=== PATIENT | female | born 1940 | race Caucasian/White ===

== ENCOUNTER 2018-05-26 10:36 | Observation (INO) | payer OTHER ==
[2018-05-26 11:28] LABS: Absolute Lymphocytes (CBC) 1.6 K/uL (0.7-4.9); Absolute Monocytes 0.4 K/uL (0.1-1.3); Absolute Neutrophil 6.7 K/uL (1.8-8.0); Basophils % 0.5 % (0-1.3); Eosinophils % 0.6 % (0-4.4); Hematocrit 41.2 % (36.0-45.0); Lymphocytes % 18.2 % (15.3-44.8); MCH 31.9 pg (27.0-35.0); MCV 90.9 fL (80-100); MPV 9.1 fL (7.6-11.3); Monocytes % 4.6 % (3.3-12.3); RBC Red Blood Cell Count 4.54 M/uL (3.86-4.86)
[2018-05-26 11:33] LABS: Protime INR 1.03
--- NOTE | 2018-05-26 11:41 | EDPHYS ---
Physician Documentation [facility] Name: Mariela Potter Age: 77 yrs Sex: Female : 1940 Arrival Date: 05/26/2018 Time: 10:37 Bed 2 Private MD: ED Physician Yinka Romero HPI: 05/26 11:35 This 77 yrs old Female presents to ER via Ambulatory with complaints of Chest chester Pain > 30 y/o, Palpitations. 11:35 The patient or guardian reports chest pain that is located primarily in the substernal chester area, anterior chest wall, bilaterally. Onset: 2 day(s) ago. The pain does not radiate. Associated signs and symptoms: The patient has no apparent associated signs or symptoms. The chest pain is described as a heaviness, causing indigestion, a pressure, squeezing. Modifying factors: The symptoms are alleviated by remaining still, rest, the symptoms are aggravated by nothing. possibly supine. Severity of pain: At its worst the pain was mild in the emergency department the pain is unchanged. Historical: - Allergies: 11:00 No Known Allergies; aj1 - Home Meds: 11:00 losartan oral oral [Active]; pravastatin oral oral [Active]; aj1 - PMHx: 11:00 Hypertension; "heart blockage"; aj1 - Immunization history:: Adult Immunizations up to date. - Ebola Screening: : Patient denies travel to an Ebola-affected area in the 21 days before illness onset. - Family history:: not pertinent. - Social history:: Smoking status: Patient/guardian denies using tobacco. ROS: 11:35 Constitutional: Negative for fever, chills, and weight loss, Eyes: Negative for injury, chester pain, redness, and discharge. 11:38 Constitutional: Negative for fever, chills, and weight loss, Eyes: Negative for injury, chester pain, redness, and discharge, ENT: Negative for injury, pain, and discharge, Neck: Negative for injury, pain, and swelling, Respiratory: Negative for shortness of breath, cough, wheezing, and pleuritic chest pain, Abdomen/GI: Negative for abdominal pain, nausea, vomiting, diarrhea, and constipation, Back: Negative for injury and pain, : Negative for injury, bleeding, discharge, and swelling, MS/Extremity: Negative for injury and deformity, Skin: Negative for injury, rash, and discoloration, Neuro: Negative for headache, weakness, numbness, tingling, and seizure, Psych: Negative for depression, anxiety, suicide ideation, homicidal ideation, and hallucinations, Allergy/Immunology: Negative for hives, rash, and allergies, Endocrine: Negative for neck swelling, polydipsia, polyuria, polyphagia, and marked weight changes, Hematologic/Lymphatic: Negative for swollen nodes, abnormal bleeding, and unusual bruising. 11:38 Cardiovascular: Positive for chest pain, of the chest. Exam: 11:35 Constitutional: This is a well developed, well nourished patient who is awake, alert, chester and in no acute distress. Head/Face: Normocephalic, atraumatic. Eyes: Pupils equal round and reactive to light, extra-ocular motions intact. Lids and lashes normal. Conjunctiva and sclera are non-icteric and not injected. Cornea within normal limits. Periorbital areas with no swelling, redness, or edema. ENT: Nares patent. No nasal discharge, no septal abnormalities noted. Tympanic membranes are normal and external auditory canals are clear. Oropharynx with no redness, swelling, or masses, exudates, or evidence of obstruction, uvula midline. Mucous membranes moist. Neck: Trachea midline, no thyromegaly or masses palpated, and no cervical lymphadenopathy. Supple, full range of motion without nuchal rigidity, or vertebral point tenderness. No Meningismus. Chest/axilla: Normal chest wall appearance and motion. Nontender with no deformity. No lesions are appreciated. Respiratory: Lungs have equal breath sounds bilaterally, clear to auscultation and percussion. No rales, rhonchi or wheezes noted. No increased work of breathing, no retractions or nasal flaring. Abdomen/GI: Soft, non-tender, with normal bowel sounds. No distension or tympany. No guarding or rebound. No evidence of tenderness throughout. Back: No spinal tenderness. No costovertebral tenderness. Full range of motion. Female : Normal external genitalia. Skin: Warm, dry with normal turgor. Normal color with no rashes, no lesions, and no evidence of cellulitis. MS/ Extremity: Pulses equal, no cyanosis. Neurovascular intact. Full, normal range of motion. Neuro: Awake and alert, GCS 15, oriented to person, place, time, and situation. Cranial nerves II-XII grossly intact. Motor strength 5/5 in all extremities. Sensory grossly intact. Cerebellar exam normal. Normal gait. Psych: Awake, alert, with orientation to person, place and time. Behavior, mood, and affect are within normal limits. 11:35 Cardiovascular: Rate: normal, Rhythm: regular, Heart sounds: normal, Edema: is not appreciated, JVD: is not appreciated. Vital Signs: 11:00 BP 163 / 58; Pulse 73; Resp 18; Temp 98.1; Pulse Ox 97% on R/A; Weight 63.5 kg (R); aj1 Height 5 ft. 3 in. (160.02 cm) (R); Pain 0/10; 12:00 BP 156 / 67; Pulse 62; Resp 18; Pulse Ox 98% ; aj1 13:00 BP 160 / 56; Pulse 63; Resp 18; Pulse Ox 96% ; aj1 14:05 BP 145 / 88; Pulse 45; Resp 18; Pulse Ox 97% on R/A; aj1 15:25 BP 156 / 66; Pulse 48; Resp 18; Pulse Ox 97% on R/A; aj1 16:33 BP 145 / 62; Pulse 53; Resp 18; Pulse Ox 97% on R/A; aj1 11:00 Body Mass Index 24.80 (63.50 kg, 160.02 cm) [facility] MDM: 10:41 Patient medically screened. [facility] 11:37 Data reviewed: vital signs, nurses notes. Data reviewed: lab test result(s), EKG, chester radiologic studies, plain films. 05/26 10:42 Order name: Basic Metabolic Panel [facility] 05/26 10:42 Order name: CBC with Diff [facility] 05/26 10:42 Order name: LFT's [facility] 05/26 10:42 Order name: Magnesium [facility] 05/26 10:42 Order name: NT PRO-BNP [facility] 05/26 10:42 Order name: PT-INR [facility] 05/26 10:42 Order name: Troponin (emerg Dept Use Only) [facility] 05/26 10:42 Order name: Lipase [facility] 05/26 11:29 Order name: CBC with Automated Diff; Complete Time: 11:35 EDMS 05/26 11:33 Order name: Protime (+INR); Complete Time: 11:35 EDSC 05/26 12:06 Order name: Basic Metabolic Panel; Complete Time: 12:36 EDSC 12 12:06 Order name: Liver (Hepatic) Function; Complete Time: 12:36 [facility] 05/26 12:06 Order name: Troponin (Emerg Dept Use Only); Complete Time: 12:36 EDSC 05/26 12:06 Order name: NT PRO-BNP; Complete Time: 12:36 [facility] 05/26 10:42 Order name: XRAY Chest (1 view) [facility] 05/26 10:42 Order name: EKG; Complete Time: 10:43 [facility] 05/26 10:42 Order name: Cardiac monitoring; Complete Time: 11:10 [facility] 05/26 10:42 Order name: EKG - Nurse/Tech; Complete Time: 11:10 [facility] 05/26 10:42 Order name: IV Saline Lock; Complete Time: 11:25 [facility] 05/26 10:42 Order name: Labs collected and sent; Complete Time: 11:25 [facility] 05/26 10:42 Order name: O2 Per Protocol; Complete Time: 11:10 [facility] 05/26 10:42 Order name: O2 Sat Monitoring; Complete Time: 11:10 [facility] 05/26 10:42 Order name: Urine Dipstick-Ancillary (obtain specimen); Complete Time: 13:52 [facility] 05/26 12:06 Order name: Magnesium; Complete Time: 12:36 [facility] 05/26 12:06 Order name: Lipase; Complete Time: 12:36 [facility] 05/26 12:22 Order name: RAD; Complete Time: 12:36 [facility] 05/26 16:22 Order name: Urine Dipstick--Ancillary (enter results) bd Administered Medications: 13:03 Drug: Lovenox 1 mg/kg Route: Sub-Q; Site: left lower abdomen; aj1 14:05 Follow up: Response: No adverse reaction aj1 13:03 Drug: Lopressor 25 mg {Note: HR 66 BP 175/82.} Route: PO; aj1 14:05 Follow up: Response: Adverse reaction, Physician notified; Cardiac rhythm changed aj1 13:21 Drug: NS 0.9% 1000 ml Route: IV; Rate: 125 ml/hr; Site: left antecubital; aj1 22:29 Follow up: IV Status: Infusion continued upon admission; IV Intake: 375ml aj1 Disposition: 05/26/18 11:40 Hospitalization ordered by Marcellus Izquierdo for Observation. Preliminary diagnosis are Chest pain, unspecified, Essential (primary) hypertension. - Bed requested for Telemetry/MedSurg (observation). - Status is Observation. aj1 - Condition is Fair. - Problem is new. - Symptoms have improved. UTI on Admission? No Signatures: Dispatcher [employer] EDSwathi Ortiz RN RN aj1 Yinka Romero MD MD cha Fitzgerald, Diane, RN RN df Corrections: (The following items were deleted from the chart) 11:38 11:37 Data reviewed: vital signs, nurses notes, lab test result(s), EKG, radiologic chester studies, CT scan, plain films, [facility] 14:30 11:40 Hospitalization Ordered by Marcellus Izquierdo DO for Observation. Preliminary df diagnosis is Chest pain, unspecified; Essential (primary) hypertension. Bed requested for Telemetry/MedSurg (observation). Status is Observation. Condition is Fair. Problem is new. Symptoms have improved. UTI on Admission? No. chester 16:36 14:30 05/26/2018 11:40 Hospitalization Ordered by Marcellus Izquierdo DO for Observation. aj1 Preliminary diagnosis is Chest pain, unspecified; Essential (primary) hypertension. Bed requested for Telemetry/MedSurg (observation). Status is Observation. Condition is Fair. Problem is new. Symptoms have improved. UTI on Admission? No. df
--- NOTE | 2018-05-26 11:41 | ER ---
Nurse's Notes [facility] Name: Mariela Potter Age: 77 yrs Sex: Female : 1940 Arrival Date: 05/26/2018 Time: 10:37 Bed 2 Private MD: Diagnosis: Chest pain, unspecified;Essential (primary) hypertension Presentation: 05/26 10:37 Presenting complaint: Patient states: Mid sternal CP that started yesterday, sg intermittent, described as a pinch and then no pain, reports having had 80 percent blockage and a Cath done many years ago but the procedure was not finished, unsure why, reports at night having low BP and feeling her heart pounding and fluttering. Transition of care: patient was not received from another setting of care. Onset of symptoms was May 26, 2018. Risk Assessment: Do you want to hurt yourself or someone else? Patient reports no desire to harm self or others. Initial Sepsis Screen: Does the patient meet any 2 criteria? No. Patient's initial sepsis screen is negative. Does the patient have a suspected source of infection? No. Patient's initial sepsis screen is negative. Care prior to arrival: None. 10:37 Method Of Arrival: Ambulatory sg 10:37 Acuity: GWEN 3 sg Triage Assessment: 11:00 General: Appears in no apparent distress. comfortable, Behavior is calm, cooperative, aj1 appropriate for age. Pain: Denies pain. Cardiovascular: Denies chest pain. Historical: - Allergies: 11:00 No Known Allergies; aj1 - Home Meds: 11:00 losartan oral oral [Active]; pravastatin oral oral [Active]; aj1 - PMHx: 11:00 Hypertension; "heart blockage"; aj1 - Immunization history:: Adult Immunizations up to date. - Ebola Screening: : Patient denies travel to an Ebola-affected area in the 21 days before illness onset. - Family history:: not pertinent. - Social history:: Smoking status: Patient/guardian denies using tobacco. Screenin:01 Abuse screen: Denies threats or abuse. Denies injuries from another. Nutritional aj1 screening: No deficits noted. Tuberculosis screening: No symptoms or risk factors identified. 16:35 Fall Risk None identified. aj1 Assessment: 11:01 General: Appears in no apparent distress. comfortable, Behavior is calm, cooperative, aj1 appropriate for age. Pain: Denies pain. Neuro: Level of Consciousness is awake, alert, obeys commands, Oriented to person, place, time, situation. Cardiovascular: Reports palpitations, She had some chest pressure last night after taking Cardizem for the first time Denies chest pain, shortness of breath, Heart tones S1 S2 present Patient's skin is warm and dry. Respiratory: Airway is patent Respiratory effort is even, unlabored, Respiratory pattern is regular, symmetrical. GI: No signs and/or symptoms were reported involving the gastrointestinal system. : No signs and/or symptoms were reported regarding the genitourinary system. EENT: No signs and/or symptoms were reported regarding the EENT system. Derm: No signs and/or symptoms reported regarding the dermatologic system. Skin is pink, warm \\T\\ dry. normal. Musculoskeletal: No signs and/or symptoms reported regarding the musculoskeletal system. Circulation, motion, and sensation intact. 12:00 Reassessment: Patient appears in no apparent distress at this time. No changes from aj1 previously documented assessment. Patient and/or family updated on plan of care and expected duration. Pain level reassessed. Patient is alert, oriented x 3, equal unlabored respirations, skin warm/dry/pink. 13:00 Reassessment: Patient and/or family updated on plan of care and expected duration. Pain aj1 level reassessed. General: Appears in no apparent distress. comfortable. Pain: Denies pain. Neuro: Level of Consciousness is awake, alert, obeys commands, Oriented to person, place, time, situation. Cardiovascular: Denies chest pain, shortness of breath, Heart tones S1 S2 present Patient's skin is warm and dry. Respiratory: Airway is patent Respiratory effort is even, unlabored, Respiratory pattern is regular, symmetrical. GI: No signs and/or symptoms were reported involving the gastrointestinal system. : No signs and/or symptoms were reported regarding the genitourinary system. EENT: No signs and/or symptoms were reported regarding the EENT system. Derm: No signs and/or symptoms reported regarding the dermatologic system. Skin is pink, warm \\T\\ dry. normal. Musculoskeletal: No signs and/or symptoms reported regarding the musculoskeletal system. Circulation, motion, and sensation intact. 14:05 Reassessment: Patient HR dropped, currently in the 30's to 40's. Patient is sitting up aj1 in bed, states that she feels fine. Repeat EKG obtained. Notified Dr. Romero, no orders received at this time. 14:05 Reassessment: Patient and/or family updated on plan of care and expected duration. Pain aj1 level reassessed. General: Appears in no apparent distress. comfortable, Behavior is calm, cooperative, appropriate for age. Pain: Denies pain. Neuro: Level of Consciousness is awake, alert, obeys commands, Oriented to person, place, time, situation, Denies dizziness. Cardiovascular: Patient's skin is warm and dry. Rhythm is sinus bradycardia. Respiratory: Airway is patent Respiratory effort is even, unlabored, Respiratory pattern is. 15:24 Reassessment: Patient appears in no apparent distress at this time. No changes from aj1 previously documented assessment. Patient and/or family updated on plan of care and expected duration. Pain level reassessed. Patient is alert, oriented x 3, equal unlabored respirations, skin warm/dry/pink. 16:33 Reassessment: Patient appears in no apparent distress at this time. No changes from aj1 previously documented assessment. Patient and/or family updated on plan of care and expected duration. Pain level reassessed. Patient is alert, oriented x 3, equal unlabored respirations, skin warm/dry/pink. Vital Signs: 11:00 BP 163 / 58; Pulse 73; Resp 18; Temp 98.1; Pulse Ox 97% on R/A; Weight 63.5 kg (R); aj1 Height 5 ft. 3 in. (160.02 cm) (R); Pain 0/10; 12:00 BP 156 / 67; Pulse 62; Resp 18; Pulse Ox 98% ; aj1 13:00 BP 160 / 56; Pulse 63; Resp 18; Pulse Ox 96% ; aj1 14:05 BP 145 / 88; Pulse 45; Resp 18; Pulse Ox 97% on R/A; aj1 15:25 BP 156 / 66; Pulse 48; Resp 18; Pulse Ox 97% on R/A; aj1 16:33 BP 145 / 62; Pulse 53; Resp 18; Pulse Ox 97% on R/A; aj1 11:00 Body Mass Index 24.80 (63.50 kg, 160.02 cm) aj ED Course: 10:37 Patient arrived in ED. sg 10:38 Triage completed. sg 10:38 Arm band placed on. sg 10:40 Swathi Cummings, RN is Primary Nurse. aj1 10:41 Yinka Romero MD is Attending Physician. [facility] 10:50 EKG done, by ED staff, reviewed by Yinka Romero MD. jb1 11:01 Patient has correct armband on for positive identification. cardiac cath tech on. Pulse aj1 ox on. NIBP on. 11:01 No provider procedures requiring assistance completed. Patient maintains SpO2 aj1 saturation greater than 95% on room air. 11:24 Initial lab(s) drawn, by co, sent to lab. Inserted saline lock: 22 gauge in left jb1 antecubital area, using aseptic technique. Blood collected. 11:39 Marcellus Izquierdo DO is Hospitalizing Provider. chester 16:34 Patient admitted, IV remains in place. aj1 16:35 Report given to DALLAS Urban on 4th floor. aj1 Administered Medications: 13:03 Drug: Lovenox 1 mg/kg Route: Sub-Q; Site: left lower abdomen; aj1 14:05 Follow up: Response: No adverse reaction aj1 13:03 Drug: Lopressor 25 mg {Note: HR 66 BP 175/82.} Route: PO; aj1 14:05 Follow up: Response: Adverse reaction, Physician notified; Cardiac rhythm changed aj1 13:21 Drug: NS 0.9% 1000 ml Route: IV; Rate: 125 ml/hr; Site: left antecubital; aj1 22:29 Follow up: IV Status: Infusion continued upon admission; IV Intake: 375ml aj1 Intake: 22:29 IV: 375ml; Total: 375ml. aj1 Outcome: 11:40 Decision to Hospitalize by Provider. chester 16:35 Admitted to Tele accompanied by tech, via wheelchair. aj1 16:35 Condition: good 16:35 Discharge instructions given to patient, Instructed on the need for admit, Demonstrated understanding of instructions, follow-up care. 16:36 Patient left the ED. aj1 Signatures: Glynn Beasley jb1 Swathi Cummings, RN RN aj1 Cyril Nguyen RN RN sg Anderson, Corey, MD MD chester
[2018-05-26 12:06] LABS: ALT/SGPT 20 U/L (12-78); AST/SGOT 12 U/L (15-37); Albumin 4.1 g/dL (3.4-5.0); Alkaline Phosphatase 71 U/L (45-117); BUN Blood Urea Nitrogen 14 mg/dL (7-18); Bicarbonate 25 mmol/L (21-32); Bilirubin Direct 0.2 mg/dL (0-0.2); Bilirubin Total 0.7 mg/dL (0.2-1.0); Glucose Level 112 mg/dL (74-106); Lipase 79 U/L (73-393); Magnesium 2.3 mg/dL (1.8-2.4); NT PRO-BNP 260 pg/mL (<450); Potassium 3.5 mmol/L (3.5-5.1); Protein, Total 7.5 g/dL (6.4-8.2); Sodium Level 139 mmol/L (136-145); Troponin (Emerg Dept Use Only) < 0.02 ng/mL (0.0-0.045)
[2018-05-26] MEDS ORDERED: ACETAMINOPHEN 500 MG TAB PO PRN (12:09)
[2018-05-26] MEDS ORDERED: NITROGLYCERIN 0.4 MG/TAB SL PRN (12:09)
[2018-05-26] MEDS ORDERED: ONDANSETRON 4 MG/2 ML VIAL IV PRN (12:09)
[2018-05-26] MEDS ORDERED: MORPHINE 2 MG/ML SYR IV PRN (12:09)
--- NOTE | 2018-05-26 12:20 | P.HP ---
Certification for Inpatient Patient admitted to: Observation With expected LOS: <2 Midnights Patient will require the following post-hospital care: None Practitioner: I am a practitioner with admitting privileges, knowledge of patient current condition, hospital course, and medical plan of care. Services: Services provided to patient in accordance with Admission requirements found in Title 42 Section 412.3 of the Code of Federal Regulations Patient History Date of Service: 05/26/18 Primary Care Provider: Dr. Sharma; Cardiology-Dr. Vergara Reason for admission: Chest pain, palpitation History of Present Illness: 77-year-old female presented to the emergency room with chest pain and palpitation. Patient reported chest pain to the midsternal region. She reports it as a tightness. This started about a couple weeks ago. She has seen Cardiology for this. She reports being seen at [facility] [place] for this. She had a stress test done at that time which was unremarkable. She also reports an echocardiogram. She has since followed up with a different school year nanny-Dr. Vergara to evaluate her condition. Medications had been adjusted over the last several weeks. She was recently placed on her previous medication of Diovan 80 mg daily. Yesterday she saw her school year nanny. Cardizem was implemented for better blood pressure control. She reports not doing well with the Cardizem. She had some palpitations last night. She denies any significant fever, chills , nausea or vomiting. She denies any shortness of breath. Patient came to the emergency room to further assess. In the ER patient evaluated. Blood pressure slightly elevated at 163/58. Heart rate unremarkable. CBC unremarkable. BMP unremarkable. Troponin less than 0.02. Chest x-ray pending. Patient admitted for further evaluation. When I saw the patient the ER, chest pain resolved. Patient reports a history of hypertension and CAD. She reports having heart catheterization in the past with some difficulty. No stent was placed. As mentioned above patient reports a history of palpitations. Adjustments in medications have been done recently by Cardiology. Blood pressure is still slightly elevated. She denies any smoking or alcohol. Home medications list reviewed: Yes - Past Medical/Surgical History Diabetic: No -: Hypertension -: CAD -: Hyperlipidemia Past Surgical History: Patient denies surgical history Psychosocial/ Personal History: The patient is . She has 1 child. - Family History Family History: Reviewed- Non-Contributory - Social History Smoking Status: Never smoker Alcohol use: No CD- Drugs: No Caffeine use: Yes Place of Residence: Home Review of Systems General: As per HPI Eyes: Unremarkable ENT: Unremarkable Respiratory: Unremarkable Cardiovascular: Chest Pain, Palpitations Gastrointestinal: Unremarkable Genitourinary: Unremarkable Musculoskeletal: Unremarkable Integumentary: Unremarkable Neurological: Unremarkable Lymphatics: Unremarkable Physical Examination - Physical Exam General: Alert, In no apparent distress, Oriented x3, Cooperative HEENT: Atraumatic, Normocephalic, PERRLA, Mucous membr. moist/pink Neck: Supple, No Thyromegaly Respiratory: Clear to auscultation bilaterally, Normal air movement Cardiovascular: Normal pulses, Regular rate/rhythm Gastrointestinal: Normal bowel sounds, Soft and benign, Non-distended, No tenderness, No masses, No rebound, No guarding Musculoskeletal: No erythema, No tenderness, No warmth Integumentary: No tenderness/swelling, No erythema, No warmth, No cyanosis Neurological: Normal speech, Normal strength at 5/5 x4 extr, Normal tone, Normal affect Lymphatics: No axilla or inguinal lymphadenopathy - Studies Laboratory Data (last 24 hrs) 05/26/18 11:20: PT 12.1, INR 1.03 05/26/18 11:20: WBC 8.8, Hgb 14.5, Hct 41.2, Plt Count 245 05/26/18 11:20: Sodium 139, Potassium 3.5, BUN 14, Creatinine 0.80, Glucose 112 H, Magnesium 2.3, Total Bilirubin 0.7, AST 12 L, ALT 20, Alkaline Phosphatase 71 , Lipase 79 Assessment and Plan - Plan Impression: Chest pain with palpitations with underlying CAD Hypertension, uncontrolled Hyperlipidemia Plan: Chest pain with palpitations with underlying CAD: Patient will be admitted for further evaluation. Will continue to monitor on telemetry. Will monitor cardiac enzymes. Will consult cardiology who recently saw the patient yesterday. Await further recommendations. Will continue with aspirin and DVT prophylaxis. Will continue with Diovan. Will hold Cardizem at this time. Await further recommendations from cardiology. Will check tsh and lipid panel. Hypertension, uncontrolled: Will increase Diovan to 80 mg 1 pill twice daily. Will hold Cardizem in as the patient did not respond well to this yesterday. Will continue to monitor and adjust appropriately. Hyperlipidemia: Will continue with Lipitor 40 mg daily. Discharge Plan: Home Plan to discharge in: 24 Hours - Advance Directives Does patient have a Living Will: No Does patient have a Durable POA for Healthcare: No - Code Status/Comfort Care Code Status Assessed: Yes (Patient full code.) Time Spent Managing Pts Care (In Minutes): 55
--- NOTE | 2018-05-26 12:22 | RAD REPORT ---
EXAM DESCRIPTION: RAD - Chest Single View - 05/26/2018 11:42 am CLINICAL HISTORY: Cough;Chest pain Chest pain. COMPARISON: No comparisons FINDINGS: Portable technique limits examination quality. The lungs are grossly clear. The heart is normal in size. No displaced fractures. IMPRESSION: No acute intrathoracic process suspected.
[2018-05-26] MEDS ORDERED: ENOXAPARIN 60 MG/0.6 ML SQ ONE (12:59)
[2018-05-26] MEDS ORDERED: METOPROLOL TAR 25 MG TAB ONE (12:59)
[2018-05-26] MEDS ORDERED: HYDRALAZINE HCL 20 MG/ML VIAL IV PRN (17:16)
[2018-05-26] MEDS ORDERED: ZOLPIDEM TARTRATE 10 MG TABLET PO PRN (17:17)
[2018-05-26] MEDS: VALSARTAN 80 MG TAB PO SCH (17:43)
[2018-05-26] MEDS: hydroCHLOROthiazide 12.5 MG CAP PO SCH (17:45)
[2018-05-26] MEDS ORDERED: ALPRAZOLAM 0.25 MG TABLET PO PRN (18:27)
[2018-05-26 19:02] LABS: CKMB Creatine Kinase MB < 1.0 ng/mL (0.3-3.6); Creatine Phosphokinase 71 U/L (26-192); Troponin I 0.03 ng/mL (0.0-0.045)
[2018-05-26 19:17] LABS: Urine Blood NEGATIVE (NEG); Urine Glucose NEGATIVE (NEG); Urine Protein NEGATIVE (NEG); Urine Specific Gravity 1.015 (1.005-1.030)
[2018-05-26] MEDS: HYDRALAZINE HCL 25 MG TABLET PO SCH (20:25)
[2018-05-26 20:41] LABS: CKMB Creatine Kinase MB < 1.0 ng/mL (0.3-3.6); Creatine Phosphokinase 71 U/L (26-192); Troponin I 0.03 ng/mL (0.0-0.045)
[2018-05-26] MEDS ORDERED: VALSARTAN 80 MG TAB PO SCH (21:00)
[2018-05-26] MEDS ORDERED: ATORVASTATIN 40 MG TAB PO SCH (21:00)
--- NOTE | 2018-05-26 22:13 | CON ---
Chief Complaint: Side effects from Cardizem. Ms. Potter has been a problem to treat with blood pr essure, nearly every blood pressure medicine we start causes some kind of difficulty and needs to be stopped. Yesterday, she took her first dose of Cardizem CD, a long-acting drug, and she could not sl eep. Her head was rushing. She said she would never take it again. She comes in today with her blo od pressure elevated and even her heart pounds. She has a heart rate of about 51 beats per minute. It is sinus. There is first-degree AV block and before starting it, her heart rate was in t he 60s. Most likely Cardizem has had some unfortunate and intolerable side effects, will be disconti nued. I am sure it is still having a lingering affect on her. She is not having chest pain. Physical Examination: Vital Signs: Her blood pressure is 180/90, heart rate 51. Lungs: Clear. Heart: Within normal limits. Abdomen: Soft. Extremities: Normal. Impression: I will consider that her blood pressure is poorly controlled. Our choice of trying Card izem yesterday was a failure. She is intolerant to amlodipine, several other medicines seem to give her trouble as well, so we will try hydralazine both IV and p.o. There would parameters to hold it i f her systolic goes below 140. We will see if we can control her blood pressure with Diovan 320, hyd rochlorothiazide 12.5, and hydralazine. SONIA/MICHAEL Voice ID: [id number] Report ID: [id number]
[2018-05-27 05:17] LABS: Absolute Lymphocytes (CBC) 1.9 K/uL (0.7-4.9); Absolute Monocytes 0.6 K/uL (0.1-1.3); Absolute Neutrophil 4.9 K/uL (1.8-8.0); Basophils % 0.4 % (0-1.3); Eosinophils % 1.5 % (0-4.4); Hematocrit 38.6 % (36.0-45.0); Lymphocytes % 25.4 % (15.3-44.8); MCH 32.4 pg (27.0-35.0); MCV 91.3 fL (80-100); MPV 9.6 fL (7.6-11.3); Monocytes % 8.4 % (3.3-12.3); RBC Red Blood Cell Count 4.23 M/uL (3.86-4.86)
[2018-05-27 05:30] LABS: CKMB Creatine Kinase MB 1.2 ng/mL (0.3-3.6); Creatine Phosphokinase 63 U/L (26-192); Troponin I < 0.02 ng/mL (0.0-0.045)
[2018-05-27 06:01] LABS: Magnesium 2.1 mg/dL (1.8-2.4); Potassium 3.4 mmol/L (3.5-5.1)
--- NOTE | 2018-05-27 06:16 | EKG ---
Test Date: 2018-05-26 Test Time: 17:41:47 [place] Attendant: SUJATHA MEASUREMENT RESULTS: Intervals: Rate: 48 ID: [id number] QRSD: 102 QT: 454 QTc: 405 [place]: P: 90 ID: [id number] QRS: -14 T: 53 INTERPRETIVE STATEMENTS: Marked sinus bradycardia with marked sinus arrhythmia with 1st degree AV block Abnormal ECG Compared to ECG 05/26/2018 17:39:22 No significant changes Electronically Signed On 05-27-18 06:16:15 PALEOBOTANIST by Marvin Vergara
--- NOTE | 2018-05-27 06:17 | EKG ---
Test Date: 2018-05-26 Test Time: 17:39:22 Still Operator: SUJATHA MEASUREMENT RESULTS: Intervals: Rate: 51 [place]: 230 QRSD: 98 QT: 456 QTc: 420 [place]: P: 88 [place]: 230 QRS: -16 T: 59 INTERPRETIVE STATEMENTS: Sinus bradycardia with sinus arrhythmia with 1st degree AV block Otherwise normal ECG No previous ECG available for comparison Electronically Signed On 05-27-18 06:16:23 CHEMICAL PRODUCTION TECHNICIAN by Marvin Vergara
[2018-05-27] MEDS ORDERED: PANTOPRAZOLE 40MG TABLET PO SCH (06:30)
[2018-05-27] MEDS: hydroCHLOROthiazide 12.5 MG CAP PO SCH (09:00)
[2018-05-27] MEDS: VALSARTAN 80 MG TAB PO SCH (09:00)
[2018-05-27] MEDS ORDERED: ENOXAPARIN 40 MG/0.4 ML SQ SCH (09:00)
[2018-05-27] MEDS ORDERED: ASPIRIN EC 81 MG TAB PO SCH (09:00)
[2018-05-27] MEDS: HYDRALAZINE HCL 25 MG TABLET PO SCH ×2 (09:00→13:42)
--- NOTE | 2018-05-27 13:39 | P.DS ---
Admission Date: 05/26/18 Discharge Date: 05/27/18 Primary Care Provider: Dr. Sharma; Cardiology-Dr. Vergara Disposition: TRANSFER TO [facility] Discharge Condition: GOOD Reason for Admission: Chest pain, palpitation Consultations: Cardiology-Dr. Vergara Procedures: EKG: MEASUREMENT RESULTS: Intervals: Rate: 48 [place]: 232 QRSD: 102 QT: 454 QTc: 405 [place]: P: 90 [place]: 232 QRS: -14 T: 53 INTERPRETIVE STATEMENTS: Marked sinus bradycardia with marked sinus arrhythmia with 1st degree AV block Abnormal ECG Compared to ECG 05/26/2018 17:39:22 No significant changes Medical problem list: Chest pain with palpitations secondary to marked sinus bradycardia with sinus pause and first-degree AV block with underlying CAD Hypokalemia Hypertension, uncontrolled Hyperlipidemia Brief History of Present Illness: 77-year-old female presented to the emergency room with chest pain and palpitation. Patient reported chest pain to the midsternal region. She reports it as a tightness. This started about a couple weeks ago. She has seen Cardiology for this. She reports being seen at [facility] for this. She had a stress test done at that time which was unremarkable. She also reports an echocardiogram. She has since followed up with a different manager of project management-Dr. Vergara to evaluate her condition. Medications had been adjusted over the last several weeks. She was recently placed on her previous medication of Diovan 80 mg daily. Yesterday she saw her manager of project management. Cardizem was implemented for better blood pressure control. She reports not doing well with the Cardizem. She had some palpitations last night. She denies any significant fever, chills , nausea or vomiting. She denies any shortness of breath. Patient came to the emergency room to further assess. In the ER patient evaluated. Blood pressure slightly elevated at 163/58. Heart rate unremarkable. CBC unremarkable. BMP unremarkable. Troponin less than 0.02. Chest x-ray pending. Patient admitted for further evaluation. When I saw the patient the ER, chest pain resolved. Patient reports a history of hypertension and CAD. She reports having heart catheterization in the past with some difficulty. No stent was placed. As mentioned above patient reports a history of palpitations. Adjustments in medications have been done recently by Cardiology. Blood pressure is still slightly elevated. She denies any smoking or alcohol. Hospital Course: Patient presented with chest pain and palpitations. Patient with underlying CAD. Patient admitted for further evaluation. Patient seen by Cardiology. During the course of her stay patient began to have marked bradycardia with sinus pause. EKG showed first-degree AV block. Her bradycardia did not resolved. Cardiology spoke to electrophysiology. Recommendation is for the patient to be transferred to higher level of care center for further evaluation. Patient will require pacemaker. Initiation of transfer currently in place. She has been accepted. Patient with underlying hypertension. This is uncontrolled. Medications adjusted by Cardiology. Current medications include hydralazine 25 mg 1 pill 3 times a day, valsartan 320 mg daily, and hydrochlorothiazide 12.5 mg daily. Further adjustment can be done by electrophysiology. Patient has hyperlipidemia. Will continue with Lipitor 40 mg daily. Patient with hypokalemia. Electrolytes replaced. Continue with electrolyte protocol. Vital Signs/Physical Exam: Temp Pulse Resp BP Pulse Ox 98.2 F 45 L 17 116/66 97 05/27/18 04:00 05/27/18 06:00 05/27/18 06:00 05/27/18 06:00 05/27/18 06:00 General: Alert, In no apparent distress, Oriented x3, Cooperative HEENT: Atraumatic Neck: Supple Respiratory: Clear to auscultation bilaterally, Normal air movement Cardiovascular: Abnormal pulses (Sinus bradycardia) Gastrointestinal: Normal bowel sounds, Soft and benign, Non-distended, No tenderness, No masses, No rebound, No guarding Musculoskeletal: No erythema, No tenderness, No warmth Integumentary: No tenderness/swelling, No erythema, No warmth, No cyanosis Neurological: Normal speech, Normal strength at 5/5 x4 extr, Normal tone, Normal affect Laboratory Data at Discharge: WBC 7.7 K/uL (4.3-10.9) 05/27/18 04:22 Hgb 13.7 g/dL (12.0-15.0) 05/27/18 04:22 Hct 38.6 % (36.0-45.0) 05/27/18 04:22 Plt Count 239 K/uL (152-406) 05/27/18 04:22 PT 12.1 SECONDS (9.5-12.5) 05/26/18 11:20 INR 1.03 05/26/18 11:20 Sodium 141 mmol/L (136-145) 05/27/18 04:22 Potassium 3.4 mmol/L (3.5-5.1) L 05/27/18 04:22 BUN 22 mg/dL (7-18) H 05/27/18 04:22 Creatinine 0.90 mg/dL (0.55-1.3) 05/27/18 04:22 Glucose 117 mg/dL (74-106) H 05/27/18 04:22 Magnesium 2.1 mg/dL (1.8-2.4) 05/27/18 04:22 Total Bilirubin 0.7 mg/dL (0.2-1.0) 05/26/18 11:20 AST 12 U/L (15-37) L 05/26/18 11:20 ALT 20 U/L (12-78) 05/26/18 11:20 Alkaline Phosphatase 71 U/L (45-117) 05/26/18 11:20 Troponin I < 0.02 ng/mL (0.0-0.045) 05/27/18 04:22 Triglycerides 169 mg/dL (<150) H 05/27/18 04:22 Cholesterol 195 mg/dL (<200) 05/27/18 04:22 HDL Cholesterol 53 mg/dL (40-60) 05/27/18 04:22 Cholesterol/HDL Ratio 3.68 05/27/18 04:22 Lipase 79 U/L (73-393) 05/26/18 11:20 Home Medications: Pravastatin Sodium 40 mg PO DAILY 05/26/18 Valsartan/Hydrochlorothiazide [Diovan Hct 320-12.5 mg Tab] 1 each PO DAILY 05/26 Patient Discharge Instructions: 1. Patient be transferred to higher level of care center to be evaluated by electrophysiology for pacemaker placement. Patient with marked sinus bradycardia with noted sinus pause and first-degree AV block. 2. Patient with underlying hypertension. This is uncontrolled. Medications adjusted by Cardiology. Current medications include hydralazine 25 mg 1 pill 3 times a day, valsartan 320 mg daily, and hydrochlorothiazide 12.5 mg daily. Further adjustment can be done by electrophysiology. 3. Patient has hyperlipidemia. Will continue with Lipitor 40 mg daily. 4. Patient with hypokalemia. Electrolytes replaced. Continue with electrolyte protocol. Diet: AHA Activity: Ad donna Time spent managing pt's care (in minutes): 55
--- NOTE | 2018-05-27 15:45 | PN ---
Subjective: Mrs. Potter had no medicines, which should be causing AV block since Monday, so almost 48 hours, definitely enough time for her to watch out. Still she has sinus arrest pauses up to 5 se conds. They occur 8 to 10 spells a day, perhaps more. Her underlying rhythm is sinus bradycardia in the 40s, so she needs a pacemaker. Dr. Albarado and I have spoken about her. We will try and make a transfer for her to get up to [facility], so a pacemaker can be put in tomorrow. SONIA/MICHAEL Voice ID: [id number] Report ID: [id number]
--- NOTE | 2018-05-27 16:51 | EKG ---
Test Date: 2018-05-26 Test Time: 14:21:22 Outpatient Coordinator: MANUEL MEASUREMENT RESULTS: Intervals: Rate: 42 CT: 114 QRSD: 98 QT: 466 QTc: 389 [place]: P: 105 CT: 114 QRS: -25 T: 47 INTERPRETIVE STATEMENTS: Marked sinus bradycardia Abnormal ECG Compared to ECG 05/26/2018 10:49:55 Sinus rhythm no longer present Atrial premature complex(es) no longer present Ventricular premature complex(es) no longer present Electronically Signed On 05-27-18 16:50:38 BASE CLOTH INSPECTOR by Marvin Vergara
--- NOTE | 2018-05-27 16:52 | EKG ---
Test Date: 2018-05-26 Test Time: 10:49:55 Outside Sales Manager: MEASUREMENT RESULTS: Intervals: Rate: 66 [place]: 180 QRSD: 96 QT: 424 QTc: 444 [place]: P: 82 [place]: 180 QRS: -22 T: 64 INTERPRETIVE STATEMENTS: Sinus rhythm with occasional premature ventricular complexes and premature atrial complexes Otherwise normal ECG No previous ECG available for comparison Electronically Signed On 05-27-18 16:50:46 SPRING COILER by Marvin Vergara
== END 2018-05-27 19:00 | disposition short-term general hospital (02) ==
LOC: ER 10:36 → ERHOLD 11:45 → 4TH 16:19 → 3RD-ICU 21:15
PROVIDERS: ADMIT Family Medicine; ATTEND Family Medicine
DX: R07.9 Chest pain, unspecified (principal); R00.2 Palpitations; R00.1 Bradycardia, unspecified; I44.0 Atrioventricular block, first degree; E87.6 Hypokalemia; I10 Essential (primary) hypertension; E78.5 Hyperlipidemia, unspecified; I25.10 Atherosclerotic heart disease of native coronary artery without angina pectoris
CPT/HCPCS: 36415; 71045; 80048 ×2; 80061; 80076; 81003; 82550 ×3; 82553 ×3; 83690; 83735 ×2; 83880; 84439; 84443; 84484 ×4; 85025 ×2; 85610; 93005 ×4; 96360; 96361; 96372; 99285; G0378 ×2; J1650 ×2

== ENCOUNTER 2018-05-30 06:39 | Emergency (ER) | payer OTHER ==
--- OUTSIDE RECORDS SUMMARY | 2018-05-30 06:42 | XMS REPORT | Clinical Summary ---
:1940 Author Organization [facility] Address [address] [place] [address] Care Team Providers Name Role Phone Asked, No Pcp Primary Care Provider Unavailable Allergies No Known Allergies Medications Medication Sig Dispensed Refills Start Date End Date Status valsartan (DIOVAN) 320 MG Take 320 mg 0 Active tablet by mouth daily. atorvastatin (LIPITOR) 40 Take 40 mg by 0 Active MG tablet mouth daily. aspirin (ECOTRIN) 81 MG Take 81 mg by 0 Active enteric coated tablet mouth daily. hydroCHLOROthiazide Take 12.5 mg 0 Active (HYDRODIURIL) 12.5 MG by mouth tablet daily. pantoprazole (PROTONIX) 40 Take 40 mg by 0 Active MG EC tablet mouth daily. minocycline (DYNACIN) 100 Take 1 tablet 10 tablet 0 05/29/2018 06/03/2018 Active MG tablet (100 mg total) by mouth 2 (two) times a day for 5 days. Active Problems Problem Noted Date Sinus pause 05/27/2018 Essential hypertension 07/08/2015 Hyperlipidemia with target LDL less than 100 07/08/2015 Arthritis 07/08/2015 Encounters Date Type Specialty Care Team Description 05/28/2018 Surgery Procedural Simon Angel Insertion pacemaker Cardiology MD Aure pulse generator [55290 (CPT)] 05/27/2018 - Hospital Encounter Cardiology Alexander Fatima 05/29/2018 MD [facility] 05/27/2018 Intake Access N/A after 05/29/2017 Social History Tobacco Use Types Packs/Day Years Used Date Former Smoker Quit: 05/27/2000 Smokeless Tobacco: Former User Sex Assigned at Date Recorded Not on file Job Start Date Occupation Industry Not on file Not on file Not on file Travel History Travel Start Travel End No recent travel history available. Last Filed Vital Signs Vital Sign Reading Time Taken Blood Pressure 137/63 05/29/2018 10:33 AM SPORT PSYCHOLOGIST Pulse 61 05/29/2018 10:33 AM SPORT PSYCHOLOGIST Temperature 36.7 C (98 F) 05/29/2018 10:33 AM SPORT PSYCHOLOGIST Respiratory Rate 18 05/29/2018 10:33 AM SPORT PSYCHOLOGIST Oxygen Saturation 94% 05/29/2018 10:33 AM SPORT PSYCHOLOGIST Inhaled Oxygen Concentration - - Weight 63.2 kg (139 lb 6.4 oz) 05/29/2018 3:00 AM SPORT PSYCHOLOGIST Height 160 cm (5' 3") 05/27/2018 8:26 PM SPORT PSYCHOLOGIST Body Mass Index 24.69 05/29/2018 3:00 AM SPORT PSYCHOLOGIST Plan of Treatment Health Maintenance Due Date Last Done Comments BREAST CANCER SCREENING 1992 COLON CANCER SCREENING 1992 SHINGRIX VACCINE (1 of 2) 1992 ZOSTER VACCINE 2002 PNEUMOCOCCAL POLYSACCHARIDE VACCINE AGE 65 AND OVER 09/05/2007 PNEUMOCOCCAL-13 09/05/2007 INFLUENZA VACCINE 01/24/2018 Implants Implanted Type Area Ship'S Captain Device Shelf Model / Identifier Expiration Serial / Date Lot Yesy Xt Dr Mri - [id number] Cardiac N/A: [employer]TR[employer]IC [facility] [id number] / Implanted: 05/28/2018 (Quantity not on file) Pacemaker N/A [employer] / Generators Lead, Bipolar Active Fixation Atrial Steroid Eluting 45 Cm Capsure Fix Novus System - [id number] - [id number] Cardiac Pacing N/A: [employer] [facility] 2018 [id number] / Implanted: Qty: 1 on 05/28/2018 by Simon Angel Jr., MD Leads or N/[employer] [id number] / Electrodes or [id number] Accessories Lead, Pacemaker Bipolar Fix Forming Atrial And Ventricular Steroid Eluting 52 Centimeter Capsure Fix Novus - [id number] - [id number] Cardiac Pacing N/A: [employer] [facility] 03/23/2020 [id number] / Implanted: Qty: 1 on 05/28/2018 by Simon Angel Jr., MD Leads or N/[employer] [id number] / Electrodes or [id number] Accessories Procedures Procedure Name Priority Date/Time Associated Comments Diagnosis ESTIMATED GFR Routine 05/29/2018 2:50 Results for this AM SPORT PSYCHOLOGIST procedure are in the results section. B NATRIURETIC PEPTIDE Routine 05/29/2018 2:50 Results for this AM SPORT PSYCHOLOGIST procedure are in the results section. HC COMPLETE BLD COUNT Routine 05/29/2018 2:50 Results for this W/AUTO DIFF AM SPORT PSYCHOLOGIST procedure are in the results section. BASIC METABOLIC PANEL Routine 05/29/2018 2:50 Results for this AM SPORT PSYCHOLOGIST procedure are in the results section. MAGNESIUM LEVEL Routine 05/29/2018 2:50 Results for this AM SPORT PSYCHOLOGIST procedure are in the results section. PHOSPHORUS LEVEL Routine 05/29/2018 2:50 Results for this AM SPORT PSYCHOLOGIST procedure are in the results section. XR CHEST 1 VW STAT 05/28/2018 7:32 Results for this PORTABLE PM SPORT PSYCHOLOGIST procedure are in the results section. EP INSERTION Routine 05/28/2018 6:15 PACEMAKER PULSE PM SPORT PSYCHOLOGIST GENERATOR Procedure Note - Interface, Radiology Results In - 05/28/2018 8:50 PM SPORT PSYCHOLOGIST TITLE OF PROCEDURE: Dual-chamber pacemaker placement. PREOPERATIVE DIAGNOSES: 1. Sick sinus syndrome. 2. Sinus node arrest. 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 POSTOPERATIVE DIAGNOSES: 1. Sick sinus syndrome. 2. Sinus node arrest. 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 PROCEDURES PERFORMED: 1. IV conscious sedation. 2. Left upper extremity venogram. 3. Dual-chamber pacemaker placement. BRIEF HISTORY AND CLINICAL BACKGROUND: This is a 77-year-old woman who was transferred from outside hospital for long pauses with sinus arrest reportedly in excess of 5 seconds. While here, she demonstrated pauses in excess of 4 seconds, all of which were occurring while she was awake, but supine. Hence, she denied symptoms. She did admit to a recent 5-week history of severe intermittent irregular tachycardia, which has not been identified yet, but (presumably atrial fibrillation, paroxysmal) will be identified in the near term. However, given that she has long pauses, any treatment of the presumptive clinical tachydysrhythmias will likely aggravate her sinus node dysfunction. Hence because she has sinus node arrest and sinus pauses as likely a manifestation of the tachycardia-bradycardia syndrome, she comes now for permanent pacemaker placement. It is in all probability it was the fact that she was supine that minimized any symptoms. PROCEDURE: Informed consent was obtained. Intravenous antibiotics were infused appropriately. The chest was prepped and draped in the usual sterile fashion and local anesthesia was achieved with 1% lidocaine. An upper extremity venogram was performed to identify the location of the axillary and subclavian vein and access was achieved. Guide wires were introduced under fluoroscopic guidance and advanced into the inferior vena cava. Using a sharp knife, cautery, and blunt dissection, a pocket was formed below the plane of the pectoralis fascia. The RV and atrial leads were placed into the venous system using standard technique. The RV pace/sense lead was placed into the RV apex and tested. After the thresholds were deemed adequate the lead was anchored in place. Maximum output pacing was performed to ensure that there was no diaphragmatic stimulation, and none was seen. The lead was anchored in place using 0-Ethibond sutures around the lead collar. A bipolar screw-in lead was affixed into the right atrium. Sensing and pacing thresholds were then performed. After they were found to be adequate, maximum output pacing was performed to ensure that there was no diaphragmatic stimulation, and none was seen. The lead was anchored in place using 0- Ethibond sutures around the lead collar. Fluoroscopy was repeated to ensure proper lead placement. The pacemaker pocket was visually, manually, and radiographically inspected to ensure there were no gauze or sponges in the pocket. It was then washed using antibiotic solution. Gloves and drapes were changed as needed. The pacemaker generator packet was then opened and was attached to the leads and the set screws were tightened. Each lead was gently tugged upon to ensure it was affixed within the header. After proper pacemaker function was confirmed, the lead slack and pacemaker were placed in the pocket. The pacemaker was anchored to the pectoralis muscle using 0-Ethibond suture. The skin incision was then closed in layers using 0- Vicryl sutures. Final skin closure was achieved with stainless steel antwon and skin adhesive. COMPLICATIONS: None. FINDINGS: 1. Estimated blood loss 5 mL. 2. The pacemaker is a Medtronic Cloudcroft, model [id number], serial number [id number]. 3. The right atrial lead is a Medtronic 5076, serial number [id number]. Measured P waves 4 millivolts, pacing threshold 1 volt, impedance 890 ohms. 4. The ventricular lead is a Medtronic 5076, serial number [id number], measured R-wave 7 millivolts, pacing threshold 0.4 volt, impedance 620 ohms. CONCLUSIONS: Successful dual-chamber pacemaker placement. RECOMMENDATIONS: IV antibiotics and home in the morning. PARTIAL THROMBOPLASTIN TIME Routine 05/28/2018 5:45 AM SPORT PSYCHOLOGIST Results for this (PTT) procedure are in the results section. PROTHROMBIN TIME WITH INR Routine 05/28/2018 5:45 AM SPORT PSYCHOLOGIST HC COMPLETE BLD COUNT W/AUTO Routine 05/28/2018 5:45 AM SPORT PSYCHOLOGIST Results for this DIFF procedure are in the results section. ESTIMATED GFR Routine 05/28/2018 4:00 AM SPORT PSYCHOLOGIST PREALBUMIN LEVEL Routine 05/28/2018 4:00 AM SPORT PSYCHOLOGIST THYROID STIMULATING HORMONE Routine 05/28/2018 4:00 AM SPORT PSYCHOLOGIST MAGNESIUM LEVEL Routine 05/28/2018 4:00 AM SPORT PSYCHOLOGIST PHOSPHORUS LEVEL Routine 05/28/2018 4:00 AM SPORT PSYCHOLOGIST COMPREHENSIVE METABOLIC Routine 05/28/2018 4:00 AM SPORT PSYCHOLOGIST Results for this PANEL procedure are in the results section. ECG 12-LEAD Routine 05/28/2018 1:25 AM SPORT PSYCHOLOGIST ECG 12-LEAD Routine 05/27/2018 11:58 PM SPORT PSYCHOLOGIST after 05/29/2017 Results Estimated GFR (05/29/2018 2:50 AM SPORT PSYCHOLOGIST)Only the most recent of2 resultswithin the time period is included. Estimated GFR 71 mL/min/1.[address] [facility] Comment: HOSPITAL CatergoryUnitsInterpretation G1 >=90 Normal or high G2 60-89Mildly decreased [id number] to moderately decreased [id number] to severely decreased G4 15-29Severely decreased G5 <15Kidney failure The eGFR was calculated using the Chronic Kidney Disease Epidemiology Collaboration (CKD-EPI) equation. Interpretation is based on recommendations of the National Kidney Foundation-Kidney Disease Outcomes Quality Initiative (NKF-KDOQI) published in 2014. Specimen Plasma specimen Performing Organization Address City/State/Zipcode Phone Number [facility] DEPARTMENT OF PATHOLOGY AND [address] [place] [phone] GENOMIC MEDICINE [address] [address] CBC with platelet and differential (05/29/2018 2:50 AM SPORT PSYCHOLOGIST)Only the most recent of2 resultswithin the time period is included. WBC 9.20 4.50 - 11.00 k/uL [facility] RBC 4.31 4.20 - 5.50 m/uL [facility] HGB 13.7 12.0 - 16.0 g/dL [facility] HCT 40.8 37.0 - 47.0 % [facility] MCV 94.7 82.0 - 100.0 fL [facility] MCH 31.8 27.0 - 34.0 pg [facility] MCHC 33.6 31.0 - 37.0 g/dL [facility] RDW - SD 49.6 37.0 - 55.0 fL [facility] MPV 11.0 8.8 - 13.2 fL [facility] Platelet count 231 150 - 400 k/uL [facility] Nucleated RBC 0.00 /100 WBC [facility] Neutrophils 69.1 (H) 39.0 - 69.0 % [facility] Lymphocytes 21.8 (L) 25.0 - 45.0 % [facility] Monocytes 7.4 0.0 - 10.0 % [facility] Eosinophils 1.0 0.0 - 5.0 % [facility] Basophils 0.4 0.0 - 1.0 % [facility] Immature granulocytes 0.3Comment: "Immature 0.0 - 1.0 % [facility] (promyelocytes, myelocytes, metamyelocytes) Specimen Blood Performing Organization Address City/[facility] Phone Number [facility] DEPARTMENT OF PATHOLOGY AND [address] [place] [phone] Phosphorus level (05/29/2018 2:50 AM SPORT PSYCHOLOGIST)Only the most recent of2 resultswithin the time period is included. Phosphorus 3.7 2.4 - 4.5 mg/dL [facility] Specimen Plasma specimen Performing Organization Address City/[facility] Phone Number [facility] DEPARTMENT OF PATHOLOGY AND [address] [place] [phone] [address] B natriuretic peptide (05/29/2018 2:50 AM SPORT PSYCHOLOGIST) BNP 32 0 - 100 pg/mL [facility] Specimen Blood Performing Organization Address City/[facility] Phone Number [facility] DEPARTMENT OF PATHOLOGY AND [address] [place] [phone] [place] [phone] Magnesium level (05/29/2018 2:50 AM SPORT PSYCHOLOGIST)Only the most recent of2 resultswithin the time period is included. Magnesium 2.4 1.6 - 2.4 mg/dL [facility] Specimen Plasma specimen Performing Organization Address City/[facility] Phone Number [facility] DEPARTMENT OF PATHOLOGY AND [address] [place] [phone] Basic metabolic panel (05/29/2018 2:50 AM SPORT PSYCHOLOGIST) Sodium 141 135 - 148 mEq/L [facility] Potassium 4.0 3.5 - 5.0 mEq/L [facility] Chloride 105 98 - 112 mEq/L [facility] CO2 22 (L) 24 - 31 mEq/L [facility] Anion gap 14@ANIO 7 - 15 mEq/L [facility] BUN 26 (H) 8 - 23 mg/dL [facility] Creatinine 0.81 0.50 - 0.90 mg/dL [facility] Glucose 136 (H) 65 - 99 mg/dL [facility] Calcium 9.6 8.8 - 10.2 mg/dL [facility] Specimen Plasma specimen Performing Organization Address [facility] Phone Number [facility] DEPARTMENT OF PATHOLOGY AND [address] [place] [address] XR Chest 1 Vw Portable (05/28/2018 7:32 PM SPORT PSYCHOLOGIST) Narrative Performed At EXAMINATION:XR CHEST 1 VW PORTABLE RADIANT CLINICAL HISTORY:post pacemaker insertion XR CHEST 1 VW PORTABLEimages are submitted COMPARISON:NONE FINDINGS: The cardiac silhouette is normal in size. The pulmonary vasculature is within normal limits. The lung zones are clear. There is no pleural effusion or pneumothorax. A dual-lead pacemaker is present. There is no evidence of a pneumothorax. IMPRESSION: 1. There is no acute cardiopulmonary disease. 2. There is no evidence of a pneumothorax. [facility]-[id number] Procedure Note Interface, Radiology Results Incoming - 05/28/2018 7:39 PM SPORT PSYCHOLOGIST EXAMINATION: XR CHEST 1 VW PORTABLE CLINICAL HISTORY: post pacemaker insertion XR CHEST 1 VW PORTABLE images are submitted COMPARISON: NONE FINDINGS: The cardiac silhouette is normal in size. The pulmonary vasculature is within normal limits. The lung zones are clear. There is no pleural effusion or pneumothorax. A dual-lead pacemaker is present. There is no evidence of a pneumothorax. IMPRESSION: 1. There is no acute cardiopulmonary disease. 2. There is no evidence of a pneumothorax. [facility]-[id number] Performing Organization Address [facility] Phone Number [address] [address] Partial thromboplastin time, activated (05/28/2018 5:45 AM SPORT PSYCHOLOGIST) PTT 28.9 23.0 - 36.0 sec [facility] Comment: PTT therapeutic range for unfractionated heparin is 61.0-112.0 seconds which corresponds to Anti-Xa 0.3-0.7 U/ml. Specimen Blood Performing Organization Address [facility] Phone Number [facility] DEPARTMENT OF PATHOLOGY AND [address] [place] [phone] [place] [phone] Prothrombin time with INR (05/28/2018 5:45 AM SPORT PSYCHOLOGIST) Prothrombin time 12.7 11.5 - 14.5 sec [facility] INR 1.[address] [facility] Comment: HOSPITAL The International Normalized Ratio (INR) is a therapeutic monitoring tool for patients who are stable on oral anticoagulant therapy. An INR of 2.0-3.0 is suggested for deep vein thrombosis/pulmonary embolism. Specimen Blood Performing Organization Address [facility] Phone Number [facility] DEPARTMENT OF PATHOLOGY AND [address] [place] [address] [address] Thyroid stimulating hormone (05/28/2018 4:00 AM SPORT PSYCHOLOGIST) TSH 3.32 0.27 - 4.20 uIU/mL [facility] Specimen Plasma specimen Performing Organization Address [facility] Phone Number [facility] DEPARTMENT OF PATHOLOGY AND [address] [place] [phone] [address] Prealbumin level (05/28/2018 4:00 AM SPORT PSYCHOLOGIST) Prealbumin 28 16 - 32 mg/dL [facility] Specimen Serum Performing Organization Address City/State/Zipcode Phone Number [facility] DEPARTMENT OF PATHOLOGY AND [address] [place] [address] [address] Comprehensive metabolic panel (05/28/2018 4:00 AM SPORT PSYCHOLOGIST) Sodium 139 135 - 148 mEq/L [facility] Potassium 4.0 3.5 - 5.0 mEq/L [facility] Chloride 103 98 - 112 mEq/L [facility] CO2 24 24 - 31 mEq/L [facility] Anion gap 12@ANIO 7 - 15 mEq/L [facility] BUN 21 8 - 23 mg/dL [facility] Creatinine 0.75 0.50 - 0.90 mg/dL [facility] Glucose 100 (H) 65 - 99 mg/dL [facility] Calcium 9.8 8.8 - 10.2 mg/dL [facility] Protein 6.5 6.3 - 8.3 g/dL [facility] Comment: HOSPITAL Rives 4.6-7.0 g/dL 1 week 4.4-7.6 g/dL 7 months-1year5.1-7.3 g/dL 1-2 years5.6-7.5 g/dL >3 years6.0-8.0 g/dL 18-150 6.3-8.3 g/dL Albumin 3.4 (L) 3.5 - 5.0 g/dL [facility] A/G ratio 1.1 0.7 - 3.8 [facility] Alkaline phosphatase 61 35 - 104 U/L [facility] AST 20 10 - 35 U/L [facility] ALT 13 5 - 50 U/L [facility] Total bilirubin 0.5 0.0 - 1.2 mg/dL [facility] Specimen Plasma specimen Performing Organization Address City/State/Zipcode Phone Number [facility] DEPARTMENT OF PATHOLOGY AND [address] [place] [address] [place] [phone] [place] [address] ECG 12 lead (05/28/2018 1:25 AM SPORT PSYCHOLOGIST)Only the most recent of2 resultswithin the time period is included. Ventricular rate 51 [facility] Atrial rate 51 [facility] VT interval 166 [facility] QRSD interval 102 [facility] QT interval 446 [facility] QTC interval 411 [facility] P axis 1 -76 [facility] QRS axis 1 -23 [facility] T wave axis 50 [facility] EKG impression Undetermined rhythm-Septal infarct , age undetermined-Abnormal ECG-In automated comparison with ECG of 27-MAY-2018 23:58,-Current undetermined rhythm precludes rhythm comparison, needs review-Septal infarct is now present- ST no longer depressed in H MUSE Inferior leads-Electronically Signed By Fermín Medeiros ([id number]) on 2017 1:31:23 PM Narrative Performed At Performing Organization Address City/State/Zipcode Phone Number [facility] [place] [address] [place] [address] after 05/29/2017 Insurance Payer Benefit Plan / Group Subscriber ID Type Phone Address MEDICARE MEDICARE PART A AND B xxxxxxxxxxx Medicare [place], [place] Advance Directives Patient has advance care planning documents, and code status on file. For more information, please contact:Jim Joshi[address] [place] [address] Code Status Date Activated Date Inactivated Comments Full Code 05/27/2018 10:26 PM 05/29/2018 4:41 PM Code Status decision reached by: Patient
[2018-05-30] MEDS ORDERED: cloNIDine HCl 0.1 MG TAB ONE (07:27)
[2018-05-30 08:11] LABS: Absolute Lymphocytes (CBC) 1.7 K/uL (0.7-4.9); Absolute Monocytes 0.7 K/uL (0.1-1.3); Basophils % 0.3 % (0-1.3); Eosinophils % 0.6 % (0-4.4); Hematocrit 42.3 % (36.0-45.0); Lymphocytes % 15.9 % (15.3-44.8); MCH 32.3 pg (27.0-35.0); MCV 92.4 fL (80-100); MPV 9.9 fL (7.6-11.3); Monocytes % 6.4 % (3.3-12.3); RBC Red Blood Cell Count 4.58 M/uL (3.86-4.86)
--- NOTE | 2018-05-30 08:30 | RAD REPORT ---
EXAM DESCRIPTION: RAD - Chest Single View - 05/30/2018 7:30 am CLINICAL HISTORY: Chest pain, recent placement of pacemaker. COMPARISON: Portable chest May 26, 2018 TECHNIQUE: AP portable chest image was obtained [id number] hours . FINDINGS: No focal lung parenchymal process. No pulmonary edema or volume overload. Interstitial mar kings are similar to comparison. Heart and vasculature are normal. No measurable pleural effusion and no pneumothorax. Two lead left subclavian pacemaker is in place. No unexpected finding. No acute aor tic findings suspected. IMPRESSION: No acute cardiopulmonary process. Left subclavian pacemaker has been placed since prior imaging. No suspicious or unexpected finding or interval change.
[2018-05-30 08:35] LABS: Potassium 3.3 mmol/L (3.5-5.1); Troponin (Emerg Dept Use Only) 0.04 ng/mL (0.0-0.045)
--- NOTE | 2018-05-30 09:57 | ER ---
Nurse's Notes [facility] Name: Mariela Potter Age: 77 yrs Sex: Female : 1940 Arrival Date: 05/30/2018 Time: 06:43 Bed 7 Private MD: Bubba Sharma S Diagnosis: Hypertension Presentation: 05/30 06:40 Presenting complaint: Patient states: that she was here on Monday for HTN and fc "palpitations". Was sent to our ICU and then transferred to [facility] on Monday for Dr Angel to place Pacemaker. Sent home on Monday. Yesterday she started to have pounding in her chest and ringing in her ears. Transition of care: patient was not received from another setting of care. Onset of symptoms was May 29, 2018 at 13:00. Risk Assessment: Do you want to hurt yourself or someone else? Patient reports no desire to harm self or others. Initial Sepsis Screen: Does the patient meet any 2 criteria? No. Patient's initial sepsis screen is negative. Does the patient have a suspected source of infection? No. Patient's initial sepsis screen is negative. Care prior to arrival: None. 06:40 Method Of Arrival: Wheelchair fc 06:40 Acuity: GWEN 2 fc Historical: - Allergies: 07:00 No Known Allergies; fc - Home Meds: 07:00 losartan Oral [Active]; pravastatin Oral [Active]; fc - PMHx: 07:00 "heart blockage"; Hypertension; skin cancer; fc - PSHx: 07:00 pacemaker; leg surg; wrist surg; skin cancer surg; Appendectomy; fc - Immunization history:: Last tetanus immunization: up to date Flu vaccine is not up to date. - Social history:: Smoking status: Patient/guardian denies using tobacco, Patient/guardian denies using alcohol, street drugs. - Ebola Screening: : Patient negative for fever greater than or equal to 101.5 degrees Fahrenheit, and additional compatible Ebola Virus Disease symptoms Patient denies exposure to infectious person Patient denies travel to an Ebola-affected area in the 21 days before illness onset. - Family history:: not pertinent. - Hospitalizations: : Patient was recently seen at. Screenin:55 Abuse screen: Denies threats or abuse. Nutritional screening: No deficits noted. fc Tuberculosis screening: No symptoms or risk factors identified. Fall Risk None identified. Assessment: 07:31 General: Appears in no apparent distress. comfortable, well groomed, well developed, sg well nourished, Behavior is calm, cooperative, appropriate for age. Pain: Denies pain. Neuro: Level of Consciousness is awake, alert, obeys commands, Oriented to person, place, time, situation, Mobile Home Park Manager are equal bilaterally Moves all extremities. Full function Speech is normal, Facial symmetry appears normal, Pupils are PERRLA. Cardiovascular: No deficits noted. Cardiovascular: Capillary refill is brisk in bilateral fingers Patient's skin is warm and dry. Chest pain is denied. Respiratory: Airway is patent Respiratory effort is even, unlabored, Respiratory pattern is regular, symmetrical. Respiratory: Denies cough, shortness of breath labored breathing, pain with respiration. GI: Abdomen is round non-distended. : No signs and/or symptoms were reported regarding the genitourinary system. EENT: No signs and/or symptoms were reported regarding the EENT system. Derm: Skin is pink, warm \\T\\ dry. Musculoskeletal: No signs and/or symptoms reported regarding the musculoskeletal system. 08:26 Reassessment: Patient appears in no apparent distress at this time. Patient and/or sg family updated on plan of care and expected duration. Pain level reassessed. Patient is alert, oriented x 3, equal unlabored respirations, skin warm/dry/pink. [employer] Interogator used per ERP order to assess pt newly placed Pacemaker/defibrillator, awaiting diagnostic fax at this time. 09:28 Reassessment: Patient appears in no apparent distress at this time. No changes from previously documented assessment. Patient and/or family updated on plan of care and expected duration. Pain level reassessed. Patient is alert, oriented x 3, equal unlabored respirations, skin warm/dry/pink. 10:00 Reassessment: Patient appears in no apparent distress at this time. Patient and/or family updated on plan of care and expected duration. Pain level reassessed. Patient is alert, oriented x 3, equal unlabored respirations, skin warm/dry/pink. Vital Signs: 06:40 BP 186 / 68; Pulse 65; Resp 18; Pulse Ox 99% on R/A; Weight 62.6 kg (R); Height 5 ft. 3 fc in. (160.02 cm) (R); Pain 0/10; 07:06 BP 179 / 79; Pulse 69; Resp 24; Pulse Ox 98% on R/A; Pain 0/10; tl1 08:00 BP 134 / 63; Pulse 60 MON; Resp 14 S; Temp 97.7; Pulse Ox 100% on R/A; Pain 0/10; sg 09:00 BP 100 / 54; Pulse 61; Resp 15; Pulse Ox 100% on R/A; Pain 0/10; hb 10:00 BP 112 / 68; Pulse 66; Resp 15; Pulse Ox 100% on R/A; hb 06:40 Body Mass Index 24.45 (62.60 kg, 160.02 cm) fc ED Course: 06:40 Arm band placed on Patient placed in an exam room, on a stretcher. fc 06:40 Patient has correct armband on for positive identification. Placed in gown. Bed in low fc position. Call light in reach. Side rails up X 1. quality assurance monitor body on. Pulse ox on. NIBP on. 06:43 Patient arrived in ED. es 06:43 Bubba Sharma MD is Private Physician. es 06:55 Triage completed. fc 07:00 Gio Jolly MD is Attending Physician. rn 07:10 Cyril Nguyen, [place] is Primary Nurse. sg 07:29 X-ray completed. Portable x-ray completed in exam room. Patient tolerated procedure jb2 well. 07:30 Initial lab(s) drawn, by nv, sent to lab. IV is patent, is intact, 22 G RAC inserted by stanislav Arce RN. 07:31 XRAY Chest (1 view) In Process Unspecified. EDMS 07:52 EKG done, by military technology specialist. reviewed by Gio Jolly MD. at1 10:08 No provider procedures requiring assistance completed. IV discontinued, intact, hb bleeding controlled, No redness/swelling at site. Pressure dressing applied. Administered Medications: 07:24 Drug: cloNIDine 0.1 mg Route: PO; hb 08:20 Follow up: Response: No adverse reaction hb 08:37 Follow up: Response: No adverse reaction; Blood pressure is lowered sg Outcome: 09:56 Discharge ordered by . rn 10:08 Discharged to home ambulatory. hb 10:08 Condition: stable 10:08 Discharge instructions given to patient, Instructed on discharge instructions, follow up and referral plans. medication usage, Demonstrated understanding of instructions, follow-up care, medications. 10:08 Patient left the ED. hb Signatures: Dispatcher [employer] Cyril Lynch, RN RN Nehal Hernadez Jesse jb2 Berta Carrizales RN RN Gio Simons MD MD rn Gonzales, Amanda, stamping die maker EKG Tat1 Yazmin Lubin RN RN tl1 Kathie Silver RN RN hb Corrections: (The following items were deleted from the chart) 08:39 08:00 BP 99 / 51; Pulse 60bpm; Resp 16bpm; Pulse Ox 100% RA; hb sg 10:08 09:00 BP 100 / 254; Pulse 61bpm; Resp 15bpm; Pulse Ox 100% RA; Pain 0/10; hb hb
--- NOTE | 2018-05-30 09:57 | EDPHYS ---
Physician Documentation [facility] Name: Mariela Potter Age: 77 yrs Sex: Female : 1940 Arrival Date: 05/30/2018 Time: 06:43 Bed 7 Private MD: Bubba Sharma S ED Physician Gio Jolly HPI: 05/30 07:23 This 77 yrs old Female presents to ER via Wheelchair with complaints of Nose rn Bleed, High Blood Pressure, PACEMAKER. 07:23 The patient presents with a nose bleed. rn 07:23 Reports recent placement of pacemaker, sent home yesterday, is supposed to be taking rn lasix for blood pressure but urinates a lot at night, so hasn't been taking it, reports came in because heart was pounding again, heard ringing in her ears. No chest pain/sob/extremity swelling. . Onset: The symptoms/episode began/occurred at an unknown time. Severity of symptoms: At their worst the symptoms were moderate in the emergency department the symptoms are unchanged. The patient has experienced similar episodes in the past. The patient has been recently seen by a physician:. Historical: - Allergies: 07:00 No Known Allergies; fc - Home Meds: 07:00 losartan Oral [Active]; pravastatin Oral [Active]; fc - PMHx: 07:00 "heart blockage"; Hypertension; skin cancer; fc - PSHx: 07:00 pacemaker; leg surg; wrist surg; skin cancer surg; Appendectomy; fc - Immunization history:: Last tetanus immunization: up to date Flu vaccine is not up to date. - Social history:: Smoking status: Patient/guardian denies using tobacco, Patient/guardian denies using alcohol, street drugs. - Ebola Screening: : Patient negative for fever greater than or equal to 101.5 degrees Fahrenheit, and additional compatible Ebola Virus Disease symptoms Patient denies exposure to infectious person Patient denies travel to an Ebola-affected area in the 21 days before illness onset. - Family history:: not pertinent. - Hospitalizations: : Patient was recently seen at. ROS: 07:23 Constitutional: Negative for fever, chills, and weight loss, Eyes: Negative for injury, rn pain, redness, and discharge, Neck: Negative for injury, pain, and swelling, Cardiovascular: Negative for chest pain, and edema, Respiratory: Negative for shortness of breath, cough, wheezing, and pleuritic chest pain, Abdomen/GI: Negative for abdominal pain, nausea, vomiting, diarrhea, and constipation, MS/Extremity: Negative for injury and deformity, Skin: Negative for injury, rash, and discoloration, Neuro: Negative for headache, weakness, numbness, tingling, and seizure. Exam: 07:23 Constitutional: This is a well developed, well nourished patient who is awake, alert, rn and in no acute distress. Head/Face: Normocephalic, atraumatic. Eyes: Pupils equal round and reactive to light, extra-ocular motions intact. Lids and lashes normal. Conjunctiva and sclera are non-icteric and not injected. Cornea within normal limits. Periorbital areas with no swelling, redness, or edema. ENT: MMM Cardiovascular: Regular rate and rhythm. No JVD. No pulse deficits. Respiratory: Lungs have equal breath sounds bilaterally, clear to auscultation. No increased work of breathing, no retractions or nasal flaring. Abdomen/GI: soft, non-tender MS/ Extremity: Pulses equal, no cyanosis. Neurovascular intact. Full, normal range of motion. Equal circumference. Neuro: Awake and alert, GCS 15, oriented to person, place, time, and situation. Cranial nerves II-XII grossly intact. Motor strength 5/5 in all extremities. Sensory grossly intact. Cerebellar exam normal. 07:58 ECG was reviewed by the Attending Physician. rn Vital Signs: 06:40 BP 186 / 68; Pulse 65; Resp 18; Pulse Ox 99% on R/A; Weight 62.6 kg (R); Height 5 ft. 3 fc in. (160.02 cm) (R); Pain 0/10; 07:06 BP 179 / 79; Pulse 69; Resp 24; Pulse Ox 98% on R/A; Pain 0/10; tl1 08:00 BP 134 / 63; Pulse 60 MON; Resp 14 S; Temp 97.7; Pulse Ox 100% on R/A; Pain 0/10; sg 09:00 BP 100 / 54; Pulse 61; Resp 15; Pulse Ox 100% on R/A; Pain 0/10; hb 10:00 BP 112 / 68; Pulse 66; Resp 15; Pulse Ox 100% on R/A; hb 06:40 Body Mass Index 24.45 (62.60 kg, 160.02 cm) fc MDM: 07:00 Patient medically screened. rn 09:53 Differential Diagnosis hypertension, pacemaker abnormality, anxiety. Data reviewed: rn vital signs, nurses notes, lab test result(s), EKG, radiologic studies, plain films, and as a result, I will discharge patient. Counseling: I had a detailed discussion with the patient and/or guardian regarding: the historical points, exam findings, and any diagnostic results supporting the discharge/admit diagnosis, lab results, radiology results, the need for outpatient follow up, to return to the emergency department if symptoms worsen or persist or if there are any questions or concerns that arise at home. Response to treatment: the patient's symptoms have markedly improved after treatment. Special discussion: I discussed with the patient/guardian in detail that at this point there is no indication for admission to the hospital. It is understood, however, that if the symptoms persist or worsen the patient needs to return immediately for re-evaluation. Based on the history and exam findings, there is no indication for further emergent testing or inpatient evaluation. I discussed with the patient/guardian the need to see the utility bill complaints investigator for further evaluation of the symptoms. I discussed with the patient/guardian the need to see the primary care provider for further evaluation of the symptoms. ED course: BP improved and so did symptoms, neg w/u here, pacemaker interrogation does not reveal any abnormalities, pacemaker is demand and working, HR was in 40s last week, now 60s-70s. Will dc home with pcp f/u for BP management and needs to take lasix as prescribed.. 05/30 07:16 Order name: CBC with Diff; Complete Time: 08:30 rn 05/30 07:16 Order name: Basic Metabolic Panel; Complete Time: 08:49 rn 05/30 07:16 Order name: EKG; Complete Time: 07:16 rn 05/30 07:16 Order name: XRAY Chest (1 view); Complete Time: 08:31 rn 05/30 07:16 Order name: Troponin (emerg Dept Use Only); Complete Time: 08:49 rn 05/30 07:16 Order name: IV Start; Complete Time: 07:19 rn 05/30 07:16 Order name: EKG - Nurse/Tech; Complete Time: 07:19 rn EC:58 Rate is 61 beats/min. Rhythm is regular. QRS [place] is Normal. [place] interval is normal. QRS rn interval is normal. QT interval is normal. No Q waves. T waves are Normal. No ST changes noted. Clinical impression: Normal ECG. Administered Medications: 07:24 Drug: cloNIDine 0.1 mg Route: PO; hb 08:20 Follow up: Response: No adverse reaction hb 08:37 Follow up: Response: No adverse reaction; Blood pressure is lowered sg Disposition: 05/30/18 09:56 Discharged to Home. Impression: Hypertension. - Condition is Stable. - Discharge Instructions: Hypertension. - Medication Reconciliation Form, Thank You Letter, Antibiotic Education, Prescription Opioid Use form. - Follow up: Private Physician; When: 2 - 3 days; Reason: Recheck today's complaints, Re-evaluation by your physician. - Problem is new. - Symptoms have improved. Signatures: Dispatcher [employer] EDBerta Anders RN RN Gio Jolly MD MD rn Baxter, Heather, RN RN hb Gay, Steven RN Corrections: (The following items were deleted from the chart) 10:08 09:56 05/30/2018 09:56 Discharged to Home. Impression: Hypertension. Condition is hb Stable. Forms are Medication Reconciliation Form, Thank You Letter, Antibiotic Education, Prescription Opioid Use. Follow up: Private Physician; When: 2 - 3 days; Reason: Recheck today's complaints, Re-evaluation by your physician. Problem is new. Symptoms have improved. rn
--- NOTE | 2018-05-30 10:12 | EKG ---
Test Date: 2018-05-30 Test Time: 07:52:22 Brake Machine Operator: FREDI MEASUREMENT RESULTS: Intervals: Rate: 61 CO: 208 QRSD: 96 QT: 408 QTc: 410 [place]: P: 48 CO: 208 QRS: -6 T: 60 INTERPRETIVE STATEMENTS: Normal sinus rhythm Normal ECG Compared to ECG 05/26/2018 17:41:47 Sinus bradycardia no longer present Sinus arrhythmia no longer present Electronically Signed On 05-30-18 10:11:47 FARM LABOR CONTRACTOR by Marvin Vergara
== END 2018-05-30 10:08 | disposition home or self-care (01) ==
LOC: ER 06:39
DX: I10 Essential (primary) hypertension (principal); Z95.0 Presence of cardiac pacemaker; Z79.899 Other long term (current) drug therapy
CPT/HCPCS: 36415; 71045; 80048; 84484; 85025; 93005; 99284